=== PATIENT | male | born 1985 | race Caucasian/White ===

== ENCOUNTER 2020-03-07 20:01 | Emergency (ER) | payer MEDICAID, OTHER ==
[~2020-03-07] VITALS: Ht 170.2 cm; Wt 77.3 kg
[~2020-03-07 20:01] MED LIST: MEDICAL MARIJUANA
[2020-03-07] MEDS ORDERED: CefTRIAXone 250MG IM Kit w/LIDOcaine IM ONE (20:15)
[2020-03-07] MEDS ORDERED: azithromycin 250mg tablet PO ONE (20:15)
[2020-03-07] MEDS ORDERED: DOXY-11 PO (20:19)
--- NOTE | 2020-03-08 12:22 | NUR ---
called in zofran 4mg odt q 6 hours prn for nausea. pt. had called stating his antibiotic was making him through up
== END 2020-03-07 20:56 | disposition home or self-care (01) ==
LOC: ER 20:02
DX: R36.9 Urethral discharge, unspecified (principal); F12.90 Cannabis use, unspecified, uncomplicated; Z00.8 Encounter for other general examination; Z88.8 Allergy status to other drugs, medicaments and biological substances; Z79.899 Other long term (current) drug therapy
CPT/HCPCS: 96372; 99283; J0696

== ENCOUNTER 2020-03-11 16:36 | Emergency (ER) | payer MEDICAID, OTHER ==
[~2020-03-11] VITALS: Ht 170.2 cm; Wt 80.0 kg
[~2020-03-11 16:36] MED LIST changes: +DOXY-11 PO
[2020-03-11 16:44] VITALS: BP 172/92
[2020-03-11] MEDS ORDERED: DOXY100C2 PO (17:07)
[2020-03-11 18:53] LABS: COLOR,URINE YELLOW (Yellow); GLUCOSE, URINE NEGATIVE (Neg); KETONES,URINE TRACE mg/dl (Neg); LEUKOCYTE ESTERASE ,URINE TRACE (Neg); NITRITES, URINE NEGATIVE (Neg); OCCULT BLOOD,URINE NEGATIVE (Neg); PROTEIN,URINE NEGATIVE (Neg); UROBILINOGEN,URINE 0.2 E.U/dL (0.2-1.0)
[2020-03-11 18:57] LABS: CLARITY,URINE SLIGHTLY CLOUDY (Clear); UA COLLECTION TYPE CLN CATCH MIDSTREAM
[2020-03-11 19:05] LABS: BACTERIA,URINE 1+ /HPF (Neg); RBC,URINE NONE SEEN /HPF (0-2)
[2020-03-11 19:06] LABS: SQUAMOUS EPITHELIAL CELL,UR FEW /LPF (FEW)
== END 2020-03-11 18:36 | disposition home or self-care (01) ==
LOC: ER 16:36
DX: R30.0 Dysuria (principal); Z76.0 Encounter for issue of repeat prescription; F12.90 Cannabis use, unspecified, uncomplicated; Z88.6 Allergy status to analgesic agent; Z88.5 Allergy status to narcotic agent; Z88.4 Allergy status to anesthetic agent
CPT/HCPCS: 36415; 81001; 87088; 87491; 99283